=== PATIENT | female | born 1950 | race African-American/Black ===

== ENCOUNTER 2018-02-02 16:20 | Inpatient (IN) | payer OTHER ==
[2018-02-02 17:04] LABS: POC GLUCOSE 134 mg/dL (70-99)
[2018-02-02] MEDS ORDERED: DEXTROSE 50% 25 GM / 50ML DISP.SYRIN. IV ×2 (18:00→18:15)
[2018-02-02] MEDS: LORazepam 0.5 MG TABLET PO (21:00)
[2018-02-02] MEDS: levETIRAcetam 500 MG TABLET PO (21:05)
[2018-02-02] MEDS: clonazePAM 0.5 MG TABLET PO (21:05)
[2018-02-02] MEDS: ALPRAZolam 0.25 MG TABLET PO (21:05)
[2018-02-02] MEDS: lamoTRIgine 100 MG TABLET. PO (21:06)
[2018-02-02] MEDS: PROPRANOLOL 10 MG TABLET. PO (21:07)
[2018-02-03] MEDS ORDERED: LORazepam 0.5 MG TABLET PO (05:15)
[2018-02-03 07:01] LABS: POC GLUCOSE 97 mg/dL (70-99)
[2018-02-03] MEDS: INSULIN ASPART 300 UNITS/3 ML INSULN.PEN SQ ×3 (08:00→17:00)
[2018-02-03] MEDS: clonazePAM 0.5 MG TABLET PO ×2 (08:40→16:49)
[2018-02-03] MEDS: NICOTINE 7MG PATCH. TD (08:40)
[2018-02-03] MEDS: lamoTRIgine 100 MG TABLET. PO ×2 (08:40→22:26)
[2018-02-03] MEDS: levETIRAcetam 500 MG TABLET PO ×2 (08:41→22:27)
[2018-02-03] MEDS: PROPRANOLOL 10 MG TABLET. PO ×2 (08:41→21:00)
[2018-02-03] MEDS: LISINOPRIL 10 MG TABLET PO (08:41)
[2018-02-03] MEDS: ENOXAPARIN 40 MG/0.4 ML SYRINGE. SQ ×2 (08:43→09:00)
[2018-02-03] MEDS ORDERED: IBUPROFEN 400 MG TABLET. PO ×2 (08:45)
[2018-02-03] MEDS ORDERED: ACETAMINOPHEN 500 MG TABLET PO (08:45)
[2018-02-03 11:23] LABS: POTASSIUM 3.4 mmol/L (3.5-5.1)
[2018-02-03 12:38] LABS: POC GLUCOSE 105 mg/dL (70-99)
[2018-02-03 14:14] LABS: PLATELET COUNT 193 x10^3/uL (140-400)
[2018-02-03 14:29] LABS: GFR 66.3
[2018-02-03 17:08] LABS: POC GLUCOSE 95 mg/dL (70-99)
[2018-02-03] MEDS: LORazepam 0.5 MG TABLET PO (17:15)
[2018-02-03 21:54] LABS: POC GLUCOSE 97 mg/dL (70-99)
[2018-02-03 22:38] LABS: POC GLUCOSE 96 mg/dL (70-99)
[2018-02-04 06:52] LABS: POC GLUCOSE 80 mg/dL (70-99)
[2018-02-04] MEDS: INSULIN ASPART 300 UNITS/3 ML INSULN.PEN SQ ×3 (08:00→17:00)
[2018-02-04] MEDS: NICOTINE 7MG PATCH. TD (08:16)
[2018-02-04] MEDS: LISINOPRIL 10 MG TABLET PO (08:17)
[2018-02-04] MEDS: ENOXAPARIN 40 MG/0.4 ML SYRINGE. SQ (08:18)
[2018-02-04] MEDS: levETIRAcetam 500 MG TABLET PO ×2 (08:18→20:44)
[2018-02-04] MEDS: clonazePAM 0.5 MG TABLET PO ×3 (08:18→20:44)
[2018-02-04] MEDS: PROPRANOLOL 10 MG TABLET. PO ×2 (08:19→20:45)
[2018-02-04] MEDS: lamoTRIgine 100 MG TABLET. PO ×2 (08:20→20:44)
[2018-02-04 10:25] LABS: ADD MAN DIFF? NO
[2018-02-04 10:29] LABS: BASO % 1 % (0-3); EOS # 0.1 x10^3/uL (0.0-0.7); EOS % 3 % (0-3); HEMATOCRIT 27.5 % (36.0-47.0); HEMOGLOBIN 8.9 g/dL (12.0-15.5); LYMPH # 1.6 x10^3/uL (1.0-4.8); LYMPH % 38 % (24-48); MEAN CORPUSCULAR HEMOGLOBIN 26 pg (25-35); MEAN CORPUSCULAR HGB CONC 32 g/dL (31-37); MEAN CORPUSCULAR VOLUME 82 fL (79-100); MONO # 0.2 x10^3/uL (0.0-1.1); MONO % 5 % (0-9); NEUT # 2.3 x10^3uL (1.8-7.7); NEUT % 54 % (31-73); PLATELET COUNT 222 x10^3/uL (140-400); RED BLOOD COUNT 3.37 x10^6/uL (3.50-5.40); WHITE BLOOD COUNT 4.3 x10^3/uL (4.0-11.0)
[2018-02-04 10:35] LABS: CALCIUM 8.9 mg/dL (8.5-10.1); CHLORIDE 107 mmol/L (98-107); GFR 66.3; POTASSIUM 3.6 mmol/L (3.5-5.1); SODIUM 143 mmol/L (136-145)
[2018-02-04 10:46] LABS: INR 0.9 (0.8-1.1); PROTHROMBIN TIME PATIENT 11.3 SEC (11.7-14.0)
[2018-02-04 11:41] LABS: ANION GAP 9 (6-14); BLOOD UREA NITROGEN 12 mg/dL (7-20); CARBON DIOXIDE 27 mmol/L (21-32); GLUCOSE 92 mg/dL (70-99)
[2018-02-04 12:06] LABS: POC GLUCOSE 85 mg/dL (70-99)
[2018-02-04] MEDS: ALPRAZolam 0.25 MG TABLET PO (14:01)
[2018-02-04] MEDS: metFORMIN 500 MG TABLET PO (17:56)
[2018-02-04 18:03] LABS: POC GLUCOSE 80 mg/dL (70-99)
[2018-02-04 20:33] LABS: POC GLUCOSE 83 mg/dL (70-99)
[2018-02-05] MEDS: ALPRAZolam 0.25 MG TABLET PO (04:43)
[2018-02-05 07:49] LABS: POC GLUCOSE 80 mg/dL (70-99)
[2018-02-05 07:50] LABS: BILIRUBIN,URINE NEGATIVE (NEG); CLARITY,URINE CLOUDY; COLOR,URINE YELLOW; GLUCOSE,URINE NEGATIVE (NEG); NITRITE,URINE NEGATIVE (NEG); PH,URINE 7.5; PROTEIN,URINE 30 mg/dL (NEG-TRACE); UROBILINOGEN,URINE 0.2 mg/dL (0.2 mg/dL)
[2018-02-05] MEDS: INSULIN ASPART 300 UNITS/3 ML INSULN.PEN SQ ×3 (08:00→17:00)
[2018-02-05] MEDS: clonazePAM 0.5 MG TABLET PO (08:00)
[2018-02-05 08:14] LABS: AMORPHOUS SEDIMENT,UR PRESENT /HPF; BACTERIA,URINE MANY /HPF (0-FEW); RBC,URINE 0 /HPF (0-2); SQUAMOUS EPITHELIAL CELL,UR MANY /LPF
[2018-02-05] MEDS: ENOXAPARIN 40 MG/0.4 ML SYRINGE. SQ (09:00)
[2018-02-05] MEDS: NICOTINE 7MG PATCH. TD (09:32)
[2018-02-05] MEDS: LISINOPRIL 10 MG TABLET PO (09:33)
[2018-02-05] MEDS: lamoTRIgine 100 MG TABLET. PO ×2 (09:33→20:27)
[2018-02-05] MEDS: PROPRANOLOL 10 MG TABLET. PO ×2 (09:34→20:27)
[2018-02-05] MEDS: metFORMIN 500 MG TABLET PO ×2 (09:34→17:00)
[2018-02-05] MEDS: levETIRAcetam 500 MG TABLET PO ×2 (09:34→20:28)
[2018-02-05 12:37] LABS: POC GLUCOSE 116 mg/dL (70-99)
[2018-02-05 14:46] LABS: THYROID STIM HORMONE (TSH) 1.294 uIU/mL (0.358-3.74)
[2018-02-05 15:43] LABS: SEDIMENTATION RATE 20 (0-25)
[2018-02-05 17:45] LABS: VITAMIN-B12 672 pg/mL (247-911)
[2018-02-05 17:46] LABS: FOLATE 13.36 ng/ml (3.2-20.0)
[2018-02-06 07:45] LABS: POC GLUCOSE 100 mg/dL (70-99)
[2018-02-06] MEDS: INSULIN ASPART 300 UNITS/3 ML INSULN.PEN SQ ×3 (08:00→17:00)
[2018-02-06] MEDS: NICOTINE 7MG PATCH. TD (09:00)
[2018-02-06] MEDS: metFORMIN 500 MG TABLET PO ×2 (09:41→17:00)
[2018-02-06] MEDS: lamoTRIgine 100 MG TABLET. PO ×2 (09:41→21:00)
[2018-02-06] MEDS: levETIRAcetam 500 MG TABLET PO ×2 (09:41→21:00)
[2018-02-06] MEDS: PROPRANOLOL 10 MG TABLET. PO ×2 (09:41→21:00)
[2018-02-06] MEDS: LISINOPRIL 10 MG TABLET PO (09:42)
[2018-02-06] MEDS: ENOXAPARIN 40 MG/0.4 ML SYRINGE. SQ (09:43)
[2018-02-06] MEDS ORDERED: LABETALOL 20 MG/4 ML DISP.SYRIN. IVP (12:15)
[2018-02-06 12:28] LABS: POC GLUCOSE 100 mg/dL (70-99)
[2018-02-06 17:03] LABS: POC GLUCOSE 95 mg/dL (70-99)
[2018-02-07] MEDS: INSULIN ASPART 300 UNITS/3 ML INSULN.PEN SQ (08:00)
[2018-02-07] MEDS: lamoTRIgine 100 MG TABLET. PO (08:45)
[2018-02-07] MEDS: levETIRAcetam 500 MG TABLET PO (08:45)
[2018-02-07] MEDS: PROPRANOLOL 10 MG TABLET. PO (08:45)
[2018-02-07] MEDS: metFORMIN 500 MG TABLET PO (08:45)
[2018-02-07] MEDS: LISINOPRIL 10 MG TABLET PO (08:46)
[2018-02-07] MEDS: ENOXAPARIN 40 MG/0.4 ML SYRINGE. SQ (09:00)
[2018-02-07] MEDS: NICOTINE 7MG PATCH. TD (09:00)
== END 2018-02-07 12:13 | disposition home health service (06) | DRG 88 ==
LOC: 6 SOUTH 16:20
PROVIDERS: Family Medicine
DX: S06.0X0A Concussion without loss of consciousness, initial encounter (principal); G93.40 Encephalopathy, unspecified; J90 Pleural effusion, not elsewhere classified; E11.42 Type 2 diabetes mellitus with diabetic polyneuropathy; W18.39XA Other fall on same level, initial encounter; S01.01XA Laceration without foreign body of scalp, initial encounter; G40.909 Epilepsy, unspecified, not intractable, without status epilepticus; F17.210 Nicotine dependence, cigarettes, uncomplicated; G25.0 Essential tremor; I10 Essential (primary) hypertension; J44.9 Chronic obstructive pulmonary disease, unspecified; M17.11 Unilateral primary osteoarthritis, right knee; R29.6 Repeated falls; Z86.011 Personal history of benign neoplasm of the brain; Z91.81 History of falling; Y93.89 Activity, other specified; Y92.89 Other specified places as the place of occurrence of the external cause; Y99.8 Other external cause status; Z91.018 Allergy to other foods
CPT/HCPCS: 36415; 70450; 73560; 80048; 81001; 82565; 82607; 82746; 82962; 84132; 84443; 85025; 85049; 85610; 85651; 92610-GN; 97110-GP; 97116-GP; 97163-GP; 97166-GO; 97530-GP; 97535-GO; J1650; J1815